=== PATIENT | female | born 1980 | race Caucasian/White ===

== ENCOUNTER 2021-12-23 13:25 | Outpatient (CLI) | payer OTHER ==
[2021-12-23 14:09] VITALS: BP 132/72
--- NOTE | 2021-12-23 14:09 | SLEEP CARE CONSULTATION ---
Information from patient questionnaire entered by Blas Rubin MA. I have reviewed and concur with the information entered by Blas Rubin MA. This document represents the service I personally performed and the decisions made by , Claire Newberry ARNP. History of Present Illness Service Date and Time: 12/23/2021 1325 Reason for Visit: New patient (ONSET 08/2019, NO PRIORS, ) Chief Complaint: reports: Unrefreshed sleep, Snoring, Excessive daytime sleepin ess, Observed pauses in breathing, Fatigue, Other (headaches/migraines) Date of Onset: APROX 3 YEARS Usual bedtime: 1030 - 1100 Time it takes to fall asleep: 15 MINUTES Snores at night: Yes Observed to quit breathing while asleep: Yes Sleeps alone due to snoring: Yes Number of times waking at night: occasionally, some nights won't wake up at all Reasons for waking at night: reports: Choking, Gasping for air, Other (unknown reason) Toss, Turn, or Twitch while sleeping: Yes Recalls having dreams: Yes Usually gets out of bed at: [id number] Feels refreshed in the morning: No Morning headache: Yes (2 times a week; last 24-48 hrs with medication) Sleepy or fatigued during the day: Yes (low energy, fatigued; not sleepy) Ever fallen asleep while driving: No Takes day naps: No Dreams during day naps: No Prior sleep studies: No Additional HPI information: I had the pleasure of seeing GABRIELLA LIGHT today regarding the possibility of her having a sleep disorder. Her current complaints are excessive daytime sleepiness, fatigue, observed pauses in breathing, snoring and unrefreshed sleep. She also complains of waking up with headaches/migraines for 18 years. She was sent to a neurology by her PCP for her migraines. She was encouraged to get a sleep study. She states she snores heavily and has woke up gasping/choking feeling in her throat. She does not usually wake up feeling rested. She states she is fatigued during the day. She states 6 years ago she had lost weight and kept it off for 2 years where she was snoring less and had less migraines. She has put back on about 30 pounds since 2012 and gets migraines whenever she tries to exercise. 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 Patient is Single and lives in . Have you smoked in the past 12 months: No Alcohol use: Yes Alcohol amount and frequency: 2 X WEEKLY Caffeine use: Yes Caffeine amount and frequency: 2 X DAILY Family History Family history of sleep disordered breathing: No Family Hx Sleep Apnea: Mother: Snoring, Father: Snoring, Sibling: Snoring Allergies and Home Medications Drug allergies reviewed: Yes (NKDA) Home medication list reviewed: Yes Allergy and home medication list: Medications: Rizatriptan, prn vitamins Review of Systems Weight gain over past 5 years: 20 Gastrointestinal: reports: heartburn (not often) Neurological: reports: headaches. denies: head trauma Ear/Nose/Throat: reports: nasal congestion (from allergies), sinus problems, dry mouth/throat (sometimes but not consistently for last 6 months), wisdom teeth removed. denies: injury to nose, tonsillectomy Endocrine: reports: sluggishness, excessive thirst Immunologic: reports: itching, allergies to food or environment (possible) Physical Exam Vital signs obtained and entered by: Peggy RUBIN CMA [facility] Blood Pressure: 132/72 Cuff size: wrist Heart Rate: 100 O2 Saturation: 98 (paper mask) Height: 5 ft 4 in Weight: 168 lb Body Mass Index: 28.8 BMI Classification: Overweight Neck circumference: 14 (inches) Mouth and throat: narrow oropharynx Soft palate: long Hard palate: normal Uvula: normal Uvula visualization: 25% Mallampati Class III Tongue: enlarged in size with teeth oshea on lateral edges Tonsils: 1+ Neck: normal w/o lymphadenopathy or thyromegaly Heart: regular rate and rhythm Lungs: clear bilaterally Impression and Plan 1. Suspected Obstructive Sleep Apnea-Hypopnea Syndrome, as suggested by a history of loud and irregular snoring, observed cessation of breath while asleep, gasping or choking in sleep, morning headache, unrefreshed sleep, cognitive impairment, and excessive daytime sleepiness. I recommend proceeding to polysomnography to confirm the diagnosis and to assess severity. If the patient has significant sleep disordered breathing, a manual CPAP titration study will also be performed to find the optimal treatment pressure. I informed the patient of what the sleep studies involve and after some discussion, obtained agreement to proceed. The pathophysiology of obstructive sleep apnea- hypopnea syndrome was discussed with the patient and health risks of cardiovascular and cerebrovascular disease if not treated. Risks of drowsy driving discussed in detail and patient advised to avoid long distance driving and to caul fat puller at the first sign of drowsiness. Patient agreed to plan. * Schedule polysomnography * Avoid long distance driving or driving when feeling sleepy. * Avoid alcohol, sedative and muscle relaxant around bedtime. * Attempt to lose weight. * Review instructions provided by trained office staff on how to prepare for the sleep study. * Return for follow-up after sleep study completed. Counseling Topics: Weight loss health impact Visit Type: In Office Time Spent with Patient (minutes): 31 Provider Statement: I spent 100% of the Face to Face Visit with the patient with greater than 50% spent counseling the patient and coordination of care.
== END 2021-12-23 13:26 | disposition home or self-care (01) ==
LOC: SC 13:25
PROVIDERS: ATTEND Nurse Practitioner Family
DX: G47.10 Hypersomnia, unspecified (principal); R41.89 Other symptoms and signs involving cognitive functions and awareness; G47.8 Other sleep disorders; R51.9 Headache, unspecified; R06.81 Apnea, not elsewhere classified; R06.83 Snoring
CPT/HCPCS: 99203; 99212

== ENCOUNTER 2022-01-28 14:04 | Outpatient (CLI) | payer OTHER | END 2022-01-28 14:05 | disposition home or self-care (01) | LOC: SC 14:04 | PROVIDERS: ATTEND Nurse Practitioner Family | DX: G47.33 Obstructive sleep apnea (adult) (pediatric) (principal); R09.02 Hypoxemia | CPT/HCPCS: 95806 ==

== ENCOUNTER 2022-10-13 08:00 | Outpatient (CLI) | payer BC ==
[2022-10-13 10:26] LABS: BILIRUBIN,URINE NEGATIVE (NEGATIVE); GLUCOSE, URINE (UA) 100 mg/dL (NEGATIVE); KETONES,URINE (UA) NEGATIVE (NEGATIVE); LEUKOCYTE ESTERASE, URINE NEGATIVE (NEGATIVE); NITRITE,URINE NEGATIVE (NEGATIVE); OCCULT BLOOD,URINE NEGATIVE (NEGATIVE); PH,URINE 6.5 PH (5.0-7.5); PROTEIN,URINE NEGATIVE (NEGATIVE); UROBILINOGEN,URINE 0.2 (NORMAL) E.U./dL (NORMAL)
[2022-10-13 10:37] LABS: BACTERIA,URINE Rare /HPF (None Seen); CLARITY,URINE CLEAR (CLEAR); RBC,URINE 0-5 /HPF (0-5); SQUAMOUS EPITHELIAL CELL,UR RARE Squamous (<= Few); WBC,URINE 0-3 /HPF (0-5)
== END 2022-10-13 23:59 | disposition home or self-care (01) ==
LOC: LAB.WC 08:00
PROVIDERS: ATTEND Obstetrics & Gynecology
DX: Z32.01 Encounter for pregnancy test, result positive (principal)
CPT/HCPCS: 81001; 87086; 87181

== ENCOUNTER 2022-10-19 08:16 | Outpatient (CLI) | payer BC ==
--- NOTE | 2022-10-19 13:28 | Ultrasound Report ---
PROCEDURE: OB Detailed Eval INDICATIONS: POSITIVE TEST OUTSIDE/PRIOR DATING DATA: Last menstrual period (LMP): Unknown. LMP-based estimated date of delivery (SAMMIE): Unknown. First dating scan (date and location): 10/19/2022 [facility]. Estimated date of delivery (SAMMIE) from first dating scan: 01/09/2023. The below data below was generated using the ultrasound SAMMIE of 01/09/2023 TECHNIQUE: Real-time scanning was performed of the fetus, with image documentation and biometric measurements. COMPARISON: None. FINDINGS: General: A single living intrauterine gestation is present. Presentation: Transverse Placenta: Placental position is anterior, without previa. Amniotic fluid index: 18 cm, within normal limits. Largest pocket 6 cm heart rate: 148 beats per minute. Maternal cervical canal: Closed cm long; normal length is 2.5 cm or more. Measures 4.8 cm. biometrics: Biparietal diameter: 6.8 cm, 28 weeks 2 days Head circumference: 26.2 cm, 28 weeks 3 days Abdominal circumference: 25.1 cm, 29 weeks 2 days Femur length: 5.4 cm, 28 weeks 4 days Estimated gestational age from initial scan: 28 weeks 2 days. Composite gestational age from present scan: 28 weeks 2 days Estimated weight: 1292 g Measurement variability in biometric dating: +/- 10 days from 12-20 weeks gestation, +/- 2 weeks from 20-30 weeks gestation, +/- 3 weeks at 30 weeks gestation or later. Anatomic survey: Neuro: Ventricles are normal at less than 10 mm. Cisterna magna is normal at 3-11 mm. Cerebellum i s normal in size and morphology. Nuchal skin fold: Normal at less than 6 mm between 14 and 20 weeks gestational age. Face: Nose and lips, facial profile are normal. Spine: No evidence for spina bifida. Heart: 4-chambered heart is present, with normal ventricular outflow tracts. Diaphragm: Diaphragm is intact. Stomach: Left-sided stomach is present. Kidneys: No hydronephrosis. Normal is less than 5 mm in 2nd trimester, less than 7 mm in 3rd trimester. Cord: 3 vessel cord has orthotopic insertion. Bladder: Normal in size. Extremities: All 4 extremities are visualized. Right ovary is not seen. Left ovary is unremarkable. IMPRESSION: 1. [place] living intrauterine at 28 weeks 2 days based on today's ultrasound. 2. Normal placenta and amniotic fluid. 3. Normal and complete anatomic survey. Reviewed by: Medhat Doran MD on 10/19/2022 1:26 PM PDT Approved by: Medhat Doran MD on 10/19/2022 1:26 PM PDT Station ID: [id number]
== END 2022-10-19 08:17 | disposition home or self-care (01) ==
LOC: DI 08:16
PROVIDERS: ATTEND Obstetrics & Gynecology
DX: Z32.01 Encounter for pregnancy test, result positive (principal); Z36.89 Encounter for other specified antenatal screening

== ENCOUNTER 2022-10-20 08:00 | Outpatient (CLI) | payer BC ==
[2022-10-22 09:07] LABS: CHLAMYDIA TRACHOMATIS DNA NEGATIVE (NEGATIVE); NEISSERIA GONORRHOEAE DNA NEGATIVE (NEGATIVE); TRICHOMONAS VAGINALIS DNA NEGATIVE (NEGATIVE)
== END 2022-10-20 23:59 | disposition home or self-care (01) ==
LOC: LAB.WC 08:00
PROVIDERS: ATTEND Obstetrics & Gynecology
DX: Z11.3 Encounter for screening for infections with a predominantly sexual mode of transmission (principal)
CPT/HCPCS: 87491; 87591; 87661

== ENCOUNTER 2022-11-03 16:09 | Outpatient (CLI) | payer BC ==
[2022-11-03 17:47] LABS: HCT - HEMATOCRIT 32.4 % (37.0-47.0); HGB - HEMOGLOBIN 10.9 g/dL (12.0-16.0); MEAN CORPUSCULAR HGB CONC 33.6 g/dL (32.0-36.0); MEAN CORPUSCULAR VOLUME 89.3 fL (81.0-99.0); MEAN PLATELET VOLUME 8.8 fL (7.9-10.8); RED BLOOD COUNT 3.63 10^6/uL (4.20-5.40); RED CELL DISTRIBUTION WIDTH 12.7 % (12.0-15.0); WHITE BLOOD COUNT 6.5 x10^3/uL (4.8-10.8)
== END 2022-11-03 16:10 | disposition home or self-care (01) ==
LOC: LAB 16:09
PROVIDERS: ATTEND Obstetrics & Gynecology
DX: Z34.90 Encounter for supervision of normal pregnancy, unspecified, unspecified trimester (principal); Z36.89 Encounter for other specified antenatal screening; Z36.0 Encounter for antenatal screening for chromosomal anomalies
CPT/HCPCS: 36415; 82950; 85027

== ENCOUNTER 2022-11-18 08:29 | Outpatient (CLI) | payer BC ==
[2022-11-18 08:59] LABS: BASOPHILS % (AUTO) 0.3 %; EOSINOPHILS % (AUTO) 0.5 %; HCT - HEMATOCRIT 31.6 % (37.0-47.0); HGB - HEMOGLOBIN 10.8 g/dL (12.0-16.0); LYMPHOCYTES # (AUTO) 1.2 10^3/uL (1.5-3.5); LYMPHOCYTES % (AUTO) 19.7 %; MEAN CORPUSCULAR HEMOGLOBIN 29.7 pg (27.0-31.0); MEAN CORPUSCULAR HGB CONC 34.2 g/dL (32.0-36.0); MEAN CORPUSCULAR VOLUME 86.8 fL (81.0-99.0); MEAN PLATELET VOLUME 9.5 fL (7.9-10.8); MONOCYTES # (AUTO) 0.4 10^3/uL (0.0-1.0); NEUTROPHILS # (AUTO) 4.3 10^3/uL (1.5-6.6); NEUTROPHILS % (AUTO) 73.3 %; PLT - PLATELET COUNT 270 10^3/uL (130-450); RED BLOOD COUNT 3.64 10^6/uL (4.20-5.40); WHITE BLOOD COUNT 5.9 x10^3/uL (4.8-10.8)
[2022-11-18 09:07] LABS: GTT GLUCOSE,FASTING 98 mg/dL (70-100)
[2022-11-19 03:09] LABS: HBsAG SCREEN Negative (Negative)
[2022-11-19 04:09] LABS: RPR Non Reactive (Non Reactive)
[2022-11-19 07:09] LABS: HCV AB Non Reactive (Non Reactive); HIV SCREEN 4TH GENERATION Non Reactive (Non Reactive)
[2022-11-19 08:09] LABS: VARICELLA-ZOSTER AB IGG 694 index (Immune >165)
== END 2022-11-18 08:30 | disposition home or self-care (01) ==
LOC: LAB 08:29
PROVIDERS: ATTEND Obstetrics & Gynecology
DX: O99.810 Abnormal glucose complicating pregnancy (principal); Z36.89 Encounter for other specified antenatal screening
CPT/HCPCS: 36415; 82951; 82952; 85025; 86592; 86762; 86787; 86803; 86850; 86900; 86901; 87340; 87389

== ENCOUNTER 2022-12-05 10:02 | Outpatient (CLI) | payer BC, OTHER ==
[2022-12-05 10:18] VITALS: BP 108/65
--- NOTE | 2022-12-05 10:42 | PROCEDURE REPORT ---
- HPI Diagnosis/Indication for NST: Gestational Diabetes Current EDU 01/09/23 Gestation 35 Weeks and 0 Days 3 Para 2 Vital Signs Temperature 98.1 F 12/05/22 10:14 Heart Rate 100 12/05/22 10:14 Respiratory Rate 14 12/05/22 10:14 Blood Pressure 108/65 12/05/22 10:14 Temperature 98.1 F 12/05/22 10:14 Heart Rate 100 12/05/22 10:14 Respiratory Rate 14 12/05/22 10:14 Blood Pressure 108/65 12/05/22 10:14 O2 Saturation If not protocol: Oxygen Flow, liters/minute - NST Procedure NST Procedure Start Date 12/05/22 Start Time 10:07 Vibroacoustic Stimulation Used No Patient States Movement Yes 35 weeks 140, moderate variability, +accels, no decels reactive NST - Results and Plan Plan: Reactive NST
== END 2022-12-05 10:50 | disposition home or self-care (01) ==
LOC: WFO 10:02 → FBP 10:04 → WFO 10:50
PROVIDERS: ATTEND Obstetrics & Gynecology Obstetrics
DX: O24.419 Gestational diabetes mellitus in pregnancy, unspecified control (principal); O09.523 Supervision of elderly multigravida, third trimester; Z3A.35 35 weeks gestation of pregnancy
CPT/HCPCS: 59025

== ENCOUNTER 2022-12-08 14:35 | Outpatient (CLI) | payer BC, OTHER ==
[2022-12-08 14:56] VITALS: BP 120/68
--- NOTE | 2022-12-08 22:45 | PROCEDURE REPORT ---
- HPI Diagnosis/Indication for NST: Gestational Diabetes Current [facility] 01/09/23 Gestation 35 Weeks and 3 Days 3 Para 2 Vital Signs Temperature 98.4 F 12/08/22 14:53 Heart Rate 93 12/08/22 14:53 Respiratory Rate 16 12/08/22 14:53 Blood Pressure 120/68 12/08/22 14:53 Temperature 98.4 F 12/08/22 14:53 Heart Rate 93 12/08/22 14:53 Respiratory Rate 16 12/08/22 14:53 Blood Pressure 120/68 12/08/22 14:53 O2 Saturation If not protocol: Oxygen Flow, liters/minute - NST Procedure NST Procedure Start Date 12/08/22 Start Time 14:45 Stop Time 15:08 Vibroacoustic Stimulation Used No Patient States Movement Yes EFM: 150s, moderate variability, positive accelerations, no decelerations [place]: no contractions NST reactive/Cat 1 Performed and read 12/08/22 - Results and Plan Findings/Impression: 42yo at 35.3w presenting for scheduled NST for GDMA2 - NST reactive - Follow up as scheduled 4d
--- NOTE | 2022-12-11 05:24 | Labor Flowsheet ---
Labor Flowsheet Datetime Report Generated by CPN: 12/11/2022 05:24 Datetime: 12/11/2022 05:10 Pulse: 103 SpO2 (%): 100 Datetime: 12/11/2022 04:19 VITAL SIGNS NBP Sys/[place]/Mean (mmHg): 116 : 69 : 81
== END 2022-12-08 15:14 | disposition home or self-care (01) ==
LOC: DI 14:35 → FBP 14:36 → DI 15:14
PROVIDERS: ATTEND Obstetrics & Gynecology
DX: O24.419 Gestational diabetes mellitus in pregnancy, unspecified control (principal); O09.523 Supervision of elderly multigravida, third trimester; Z3A.35 35 weeks gestation of pregnancy
CPT/HCPCS: 59025

== ENCOUNTER 2022-12-09 08:00 | Outpatient (CLI) | payer BC, OTHER | END 2022-12-09 23:59 | disposition home or self-care (01) | LOC: LAB 08:00 | PROVIDERS: ATTEND Obstetrics & Gynecology | DX: Z36.85 Encounter for antenatal screening for Streptococcus B (principal) | CPT/HCPCS: 87797 ==

== ENCOUNTER 2022-12-12 14:25 | Outpatient (CLI) | payer BC, OTHER ==
[2022-12-12 14:54] VITALS: BP 112/51
--- NOTE | 2022-12-13 18:39 | PROCEDURE REPORT ---
- HPI Diagnosis/Indication for NST: Gestational Diabetes Current EDU 01/08/23 Gestation 36 Weeks and 1 Days 3 Para 2 Vital Signs Temperature 98.2 F 12/12/22 14:45 Heart Rate 91 12/12/22 14:45 Respiratory Rate 16 12/12/22 14:45 Blood Pressure 112/51 L 12/12/22 14:45 Temperature 98.2 F 12/12/22 14:45 Heart Rate 92 12/12/22 14:45 Respiratory Rate 18 12/12/22 14:45 Blood Pressure 112/51 L 12/12/22 14:45 O2 Saturation If not protocol: Oxygen Flow, liters/minute - NST Procedure NST Procedure Start Date 12/12/22 Start Time 14:34 Stop Time 15:08 Vibroacoustic Stimulation Used No Patient States Movement Yes EFM: 140s,moderate variability, positive 15x15 accelerations, no decelerations [place]: no contractions NST reactive/Cat 1 Performed and read 12/12/22 - Results and Plan Plan: 42yo at 36w presenting for scheduled NST for GDMA2, controlled with metformin - NST reactive - Follow up as scheduled
== END 2022-12-12 15:10 | disposition home or self-care (01) ==
LOC: WFO 14:25 → FBP 14:27 → WFO 15:10
PROVIDERS: ATTEND Obstetrics & Gynecology
DX: O24.415 Gestational diabetes mellitus in pregnancy, controlled by oral hypoglycemic drugs (principal); Z3A.41 41 weeks gestation of pregnancy
CPT/HCPCS: 59025

== ENCOUNTER 2022-12-15 14:02 | Outpatient (CLI) | payer BC, OTHER ==
[2022-12-15 16:12] LABS: ALBUMIN 3.1 g/dL (3.2-5.5); ALBUMIN/GLOBULIN RATIO 0.8 (1.0-2.2); BILIRUBIN,TOTAL 0.4 mg/dL (0.2-1.0); CREATININE 0.6 mg/dL (0.4-1.0); POTASSIUM 4.1 mmol/L (3.5-5.0); TOTAL PROTEIN 7.1 g/dL (6.7-8.2)
--- NOTE | 2022-12-15 19:19 | Ultrasound Report ---
PROCEDURE: OB F/U or Repeat INDICATIONS: GESTATIONAL DIABETES MELLITUS IN , UNSP C OUTSIDE/PRIOR DATING DATA: Last menstrual period (LMP): Unknown. LMP-based estimated date of delivery (SAMMIE): Unknown. First dating scan (date and location): 10/19/2022. Estimated date of delivery (SAMMIE) from first dating scan: 01/09/2023. The below data below was generated using the working SAMMIE of 01/09/2023 TECHNIQUE: Real-time scanning was performed of the fetus, with image documentation and biometric measurements. Endovaginal scanning: None COMPARISON: None. FINDINGS: General: A single living intrauterine gestation is present. Presentation: Vertex Placenta: Placental position is anterior, without previa. Amniotic fluid index: 15.5 cm, 60.8 percentile for gestational age. heart rate: 137 beats per minute. Maternal cervical canal: 3.4 cm long; normal length is 2.5 cm or more. biometrics: Biparietal diameter: 8.2 cm, 33 week 0 day Head circumference: 32.1 cm, 36 week 1 day Abdominal circumference: 34.9 cm, 38 week 6 day Femur length: 7.1 cm, 36 week 1 day Estimated gestational age from initial scan: 36 week 3 day Composite gestational age from present scan: 36 week 0 day Estimated weight and percentile: 3137 g, 73rd percentile Measurement variability in biometric dating: +/- 10 days from 12-20 weeks gestation, +/- 2 weeks from 20-30 weeks gestation, +/- 3 weeks at 30 weeks gestation or more. Other: Not applicable. IMPRESSION: Single live intrauterine consistent with 36 week 0 day gestation by current ultrasound Reviewed by: Will Izaguirre MD on 12/15/2022 6:18 PM JACKIE Approved by: Will Izaguirre MD on 12/15/2022 6:18 PM JACKIE Station ID: [id number]
== END 2022-12-15 14:03 | disposition home or self-care (01) ==
LOC: DI 14:02
PROVIDERS: ATTEND Obstetrics & Gynecology
DX: O24.419 Gestational diabetes mellitus in pregnancy, unspecified control (principal); O26.893 Other specified pregnancy related conditions, third trimester; L29.9 Pruritus, unspecified; Z3A.36 36 weeks gestation of pregnancy
CPT/HCPCS: 36415; 80053; 82542

== ENCOUNTER 2022-12-15 14:06 | Outpatient (CLI) | payer BC, OTHER ==
[2022-12-15 14:23] VITALS: BP 117/65
--- NOTE | 2022-12-15 17:36 | PROCEDURE REPORT ---
- HPI Diagnosis/Indication for NST: Gestational Diabetes Current EDU 01/09/23 Gestation 36 Weeks and 3 Days 3 Para 2 Vital Signs Temperature 98.4 F 12/15/22 14:19 Heart Rate 102 H 12/15/22 14:19 Respiratory Rate 12/15/22 14:19 Blood Pressure 117/65 12/15/22 14:19 Temperature 98.4 F 12/15/22 14:29 Heart Rate 102 H 12/15/22 14:29 Respiratory Rate 12/15/22 14:29 Blood Pressure 117/65 12/15/22 14:29 O2 Saturation If not protocol: Oxygen Flow, liters/minute - NST Procedure NST Procedure Start Date 12/15/22 Start Time 14:13 Stop Time 14:47 Vibroacoustic Stimulation Used No Patient States Movement Yes - Results and Plan Findings/Impression: Patient is a 42-year-old G3, P2 at 36 weeks 3 days gestation here for scheduled NST. NST Performed 12/15/2022 NST Read 12/15/2022 FHT: 140 bpm baseline, moderate variability, accelerations present, no decelerations. Reactive NST [place]: Irregular, mild Diagnosis 36 weeks gestation Gestational diabetes Elderly multigravida, third trimester Continue with twice weekly NST.
== END 2022-12-15 14:55 | disposition home or self-care (01) ==
LOC: WFO 14:06 → FBP 14:11 → WFO 14:55
PROVIDERS: ATTEND Obstetrics & Gynecology
DX: O24.419 Gestational diabetes mellitus in pregnancy, unspecified control (principal); O09.523 Supervision of elderly multigravida, third trimester; O26.893 Other specified pregnancy related conditions, third trimester; L29.9 Pruritus, unspecified; Z3A.36 36 weeks gestation of pregnancy
CPT/HCPCS: 36415; 59025; 80053; 82542; 99213

== ENCOUNTER 2022-12-19 14:39 | Outpatient (CLI) | payer BC, OTHER ==
[2022-12-19 14:57] VITALS: BP 108/72
--- NOTE | 2022-12-19 15:32 | PROCEDURE REPORT ---
- HPI Diagnosis/Indication for NST: Gestational Diabetes Current EDU 01/09/23 Gestation 37 Weeks and 0 Days 3 Para 2 Vital Signs Temperature 98.1 F 12/19/22 14:53 Heart Rate 97 12/19/22 14:53 Respiratory Rate 16 12/19/22 14:53 Blood Pressure 108/72 12/19/22 14:53 Temperature 98.1 F 12/19/22 14:53 Heart Rate 97 12/19/22 14:53 Respiratory Rate 16 12/19/22 14:53 Blood Pressure 108/72 12/19/22 14:53 O2 Saturation If not protocol: Oxygen Flow, liters/minute - NST Procedure NST Procedure Start Date 12/19/22 Start Time 14:50 Stop Time 15:16 Vibroacoustic Stimulation Used No Patient States Movement Yes - Results and Plan Findings/Impression: Patient is a 42-year-old at 37 weeks 0 days gestation here for scheduled NST. NST Performed 12/19/2022 NST Read 12/19/2022 FHT: 130 bpm baseline, moderate variability, accelerations present, no decelerations. Reactive NST [place]: Quiescent Diagnosis 37 weeks gestation A2 gestational diabetes a Continue with twice weekly NST.
== END 2022-12-19 15:22 | disposition home or self-care (01) ==
LOC: WFO 14:39 → FBP 14:41 → WFO 15:22
PROVIDERS: ATTEND Obstetrics & Gynecology
DX: O24.419 Gestational diabetes mellitus in pregnancy, unspecified control (principal); O09.523 Supervision of elderly multigravida, third trimester; Z3A.37 37 weeks gestation of pregnancy
CPT/HCPCS: 59025

== ENCOUNTER 2022-12-22 14:38 | Outpatient (CLI) | payer BC, OTHER ==
[2022-12-22 14:51] VITALS: BP 110/63
--- NOTE | 2022-12-22 15:20 | PROCEDURE REPORT ---
- HPI Diagnosis/Indication for NST: Gestational Diabetes Vital Signs Temperature 97.9 F 12/22/22 14:48 Heart Rate 93 12/22/22 14:48 Respiratory Rate 16 12/22/22 14:48 Blood Pressure 110/63 12/22/22 14:48 O2 Saturation 100 12/22/22 14:48 Temperature 98.2 F 12/22/22 14:57 Heart Rate 93 12/22/22 14:48 Respiratory Rate 16 12/22/22 14:48 Blood Pressure 110/63 12/22/22 14:48 O2 Saturation 100 12/22/22 14:48 If not protocol: Oxygen Flow, liters/minute - NST Procedure NST Procedure Start Time 14:50 Stop Time 15:16 - Results and Plan Plan: Patient is a 42-year-old -0-0-2 at 37 weeks 3 days gestation here for scheduled NST. NST Performed 12/22/2022 NST Read 12/22/2022 FHT: 130 bpm baseline, moderate variability, accelerations present, no decelerations. Reactive NST [place]: Quiescent Diagnosis 37 weeks gestation A2 GDM, managed with oral hypoglycemics Continue with twice weekly NST.
== END 2022-12-22 15:10 | disposition home or self-care (01) ==
LOC: WFO 14:38 → FBP 14:39 → WFO 15:10
PROVIDERS: ATTEND Obstetrics & Gynecology
DX: O24.415 Gestational diabetes mellitus in pregnancy, controlled by oral hypoglycemic drugs (principal); Z3A.37 37 weeks gestation of pregnancy
CPT/HCPCS: 59025

== ENCOUNTER 2022-12-26 14:33 | Outpatient (CLI) | payer BC, OTHER ==
[2022-12-26 14:54] VITALS: BP 113/62
--- NOTE | 2022-12-26 17:30 | PROCEDURE REPORT ---
- HPI Diagnosis/Indication for NST: Gestational Diabetes Current EDU 01/09/23 Gestation 38 Weeks and 0 Days 3 Para 2 Vital Signs Temperature 98.1 F 12/26/22 14:50 Heart Rate 99 12/26/22 14:50 Respiratory Rate 16 12/26/22 14:50 Blood Pressure 113/62 12/26/22 14:50 O2 Saturation 100 12/26/22 14:50 Temperature 98.1 F 12/26/22 15:35 Heart Rate 99 12/26/22 15:35 Respiratory Rate 16 12/26/22 15:35 Blood Pressure 113/62 12/26/22 15:35 O2 Saturation 100 12/26/22 14:50 If not protocol: Oxygen Flow, liters/minute - NST Procedure NST Procedure Start Date 12/26/22 Start Time 14:44 Stop Time 15:34 Vibroacoustic Stimulation Used No Patient States Movement Yes EFM: 150s, moderate variability, positive 15x15 accelerations [place]: no contractions NST reactive/Cat 1 Performed and read 12/26/22 - Results and Plan Plan: 42yo at 38w presenting for scheduled NST for GDMA2 - NST reactive - Follow up as scheduled 3d
== END 2022-12-26 15:35 | disposition home or self-care (01) ==
LOC: WFO 14:33 → FBP 14:34 → WFO 15:35
PROVIDERS: ATTEND Obstetrics & Gynecology
DX: O24.419 Gestational diabetes mellitus in pregnancy, unspecified control (principal); Z3A.38 38 weeks gestation of pregnancy
CPT/HCPCS: 59025; 99213

== ENCOUNTER 2022-12-29 14:36 | Outpatient (CLI) | payer BC, OTHER ==
[2022-12-29 14:55] VITALS: BP 111/55
--- NOTE | 2022-12-29 19:06 | PROCEDURE REPORT ---
- HPI Diagnosis/Indication for NST: Gestational Diabetes Current EDU 01/09/23 Gestation 38 Weeks and 3 Days 3 Para 2 Vital Signs Temperature 98.2 F 12/29/22 14:47 Temperature 98.4 F 12/29/22 14:52 Heart Rate 93 12/29/22 14:52 Respiratory Rate 16 12/29/22 14:52 Blood Pressure 111/55 L 12/29/22 14:52 O2 Saturation If not protocol: Oxygen Flow, liters/minute - NST Procedure NST Procedure Start Date 12/29/22 Start Time 14:43 Stop Time 15:08 Vibroacoustic Stimulation Used No - Results and Plan Plan: Patient is a 42-year-old at 38 weeks 3 days gestation here for scheduled NST. NST Performed 12/29/2022 NST Read 12/29/2022 FHT: 150 bpm baseline, moderate variability, accelerations present, no decelerations. Reactive NST [place]: Quiescent Diagnosis 38 weeks gestation Gestational diabetes Continue with twice weekly NST.
== END 2022-12-29 15:15 | disposition home or self-care (01) ==
LOC: WFO 14:36 → FBP 14:37 → WFO 15:15
PROVIDERS: ATTEND Obstetrics & Gynecology
DX: O24.419 Gestational diabetes mellitus in pregnancy, unspecified control (principal); Z3A.38 38 weeks gestation of pregnancy
CPT/HCPCS: 59025

== ENCOUNTER 2023-01-02 08:44 | Inpatient (IN) | payer BC, OTHER ==
--- NOTE | 2023-01-02 09:41 | HISTORY & PHYSICAL EXAMINATION ---
Admit History - Visit Reason Visit Reason: Other (induction of labor) - : 3 Parity: 2 Care: positive: [facility] Risk/History: positive: Gestational diabetes, Labor induction Complications This : positive: Gestational diabetes, Other (advanced maternal age) - Mother's Labs Mother's Blood Type: positive: O Mother's RH: positive: Positive GBS: positive: Group B Strep Positive Rubella Status: positive: Non-immune Meds/Allgy - Allergies Allergies/Adverse Reactions: Allergies Allergy/AdvReac Type Severity Reaction Status Date / Time No Known Drug Allergies Allergy Verified 01/02/23 09:12 Review of Systems - Cardiovascular Cariovascular: denies: Chest pain - Respiratory Respiratory: denies: Cough - All Other Systems All Other Systems: reports: Reviewed and negative (occasional contractions, positive movement) Physical - Abdominal Exam Uterine Resting Tone: positive: Soft - Monitoring Heart Rate Baseline: 150 Strip Review: positive: Category I - Presentation Presentation: positive: Vertex - Vaginal Exam Membranes: positive: Membranes intact Dilation (in cm): 1 Effacement (%): 50 Station: positive: -3 Cervical Position: positive: Midposition Plan for Labor - Plan For Labor Plan for Labor: 1. admit for induction of labor risks, benefits and alternatives discussed and all questions answered. Cervical ripening balloon placed and will start pitocin 2. GBS prophylaxis 3. Gestational diabetes sliding scale 4. Advanced maternal age 5. Rubella non-immune discussed MMR Rh+
[2023-01-02] MEDS: SODIUM CHLORIDE FLUSH 0.9% 10 ML SYRINGE IVP SCH ×2 (09:45→19:50)
[2023-01-02] MEDS ORDERED: TRANEXAMIC ACID IN NACL 1,000 MG/100 ML BAG IV PRN (09:48)
[2023-01-02] MEDS ORDERED: NIFEdipine 10 MG CAPSULE PO PRN (09:48)
[2023-01-02] MEDS ORDERED: OXYTOCIN 10 UNIT/ML VIAL IM PRN (09:48)
[2023-01-02] MEDS ORDERED: CARBOPROST TROMETHAMINE 250 MCG/ML AMP IM PRN (09:48)
[2023-01-02] MEDS ORDERED: miSOPROStoL 200 MCG TABLET BC PRN (09:48)
[2023-01-02] MEDS ORDERED: fentaNYL 100 MCG/2 ML VIAL IVP PRN (09:48)
[2023-01-02] MEDS ORDERED: lidocaine 1% 20 ML MDV ID PRN (09:48)
[2023-01-02] MEDS ORDERED: LABETALOL 20 MG/4 ML SYRINGE IVP PRN ×3 (09:48)
[2023-01-02] MEDS ORDERED: miSOPROStoL 200 MCG TABLET PR PRN (09:48)
[2023-01-02] MEDS ORDERED: OXYTOCIN/SODIUM CHLORIDE 500 ML IV PRN (09:48)
[2023-01-02] MEDS ORDERED: METHYLERGONOVINE 0.2 MG/ML VIAL IM PRN (09:48)
[2023-01-02] MEDS ORDERED: SODIUM CHLORIDE FLUSH 0.9% 10 ML SYRINGE IVP PRN (09:48)
[2023-01-02] MEDS ORDERED: hydrALAZINE INJ 20 MG/ML VIAL IVP PRN ×2 (09:48)
[2023-01-02] MEDS ORDERED: OXYTOCIN/SODIUM CHLORIDE 500 ML IV SCH (10:00)
[2023-01-02 10:30] LABS: BASOPHILS % (AUTO) 0.4 %; EOSINOPHILS % (AUTO) 0.4 %; HCT - HEMATOCRIT 32.2 % (37.0-47.0); HGB - HEMOGLOBIN 10.6 g/dL (12.0-16.0); LYMPHOCYTES # (AUTO) 1.2 10^3/uL (1.5-3.5); MEAN CORPUSCULAR HGB CONC 32.9 g/dL (32.0-36.0); MEAN CORPUSCULAR VOLUME 85.2 fL (81.0-99.0); MEAN PLATELET VOLUME 10.4 fL (7.9-10.8); MONOCYTES # (AUTO) 0.4 10^3/uL (0.0-1.0); MONOCYTES % (AUTO) 7.4 %; NEUTROPHILS # (AUTO) 3.6 10^3/uL (1.5-6.6); NEUTROPHILS % (AUTO) 68.4 %; PLT - PLATELET COUNT 289 10^3/uL (130-450); RED BLOOD COUNT 3.78 10^6/uL (4.20-5.40); RED CELL DISTRIBUTION WIDTH 14.3 % (12.0-15.0); WHITE BLOOD COUNT 5.3 x10^3/uL (4.8-10.8)
[2023-01-02] MEDS ORDERED: AMPICILLIN 2 GM in SODIUM CHLORIDE 0.9% MINIBAG 100 ML IV ONE (10:30)
[2023-01-02 10:44] LABS: ALBUMIN 2.9 g/dL (3.2-5.5); ALBUMIN/GLOBULIN RATIO 0.8 (1.0-2.2); BILIRUBIN,TOTAL 0.4 mg/dL (0.2-1.0); CALCIUM 8.5 mg/dL (8.5-10.3); CREATININE 0.5 mg/dL (0.4-1.0); POTASSIUM 3.5 mmol/L (3.5-5.0); TOTAL PROTEIN 6.6 g/dL (6.7-8.2)
[2023-01-02] MEDS: LACTATED RINGERS 1,000 ML IV SCH ×2 (10:52→20:47)
--- NOTE | 2023-01-02 13:26 | PROVIDER PROGRESS NOTE ---
Labor Progress Note - Uterine Monitoring Uterine Monitoring Mode: positive: External toco Contraction Frequency (min/apart): 3 Contraction Intensity: positive: Moderate Uterine Resting Tone: positive: Soft - Monitoring Monitor Mode: positive: External ultrasound Heart Rate Variability: positive: Moderate (6-25 bmp) Accelerations: positive: Present, 15x15 Decelerations: positive: None Strip Review: positive: Category I (Pitocin at 8. Patient feeling contractions, but comfortable. Cervical ripening balloon in place. wellbeing reassuring.)
[2023-01-02] MEDS: INSULIN LISPRO 300 UNIT/3 ML PEN SUBQ SCH ×2 (14:38→19:50)
[2023-01-02] MEDS: AMPICILLIN 1 GM in SODIUM CHLORIDE 0.9% MINIBAG 100 ML IV SCH ×3 (15:04→23:38)
--- NOTE | 2023-01-02 15:32 | PROVIDER PROGRESS NOTE ---
Labor Progress Note - Uterine Monitoring Uterine Monitoring Mode: positive: External toco Contraction Frequency (min/apart): 2-3 minutes Contraction Intensity: positive: Moderate to strong Uterine Resting Tone: positive: Soft - Monitoring Monitor Mode: positive: External ultrasound Heart Rate Variability: positive: Moderate (6-25 bmp) Accelerations: positive: Present, 15x15 Decelerations: positive: None Strip Review: positive: Category I - Vaginal Exam Dilation (in cm): 4 Effacement (%): 60 - Labor Progress Note Labor Progress Note/Additional Text: cervical ripening balloon came out AROM with clear fluid wellbeing is reassuring epidural as needed
--- NOTE | 2023-01-02 17:33 | PROVIDER PROGRESS NOTE ---
Labor Progress Note - Uterine Monitoring Uterine Monitoring Mode: positive: External toco Contraction Intensity: positive: Strong - Monitoring Monitor Mode: positive: External ultrasound Heart Rate Variability: positive: Moderate (6-25 bmp) Accelerations: positive: Present, 15x15 Decelerations: positive: None Strip Review: positive: Category I - Vaginal Exam Dilation (in cm): 8 Effacement (%): 90 Station: -1 Cervical Position: Anterior - Labor Progress Note Labor Progress Note/Additional Text: Patient very uncomfortable, requesting epidural wellbeing reassuring
[2023-01-02] MEDS ORDERED: ROPIVACAINE 0.2% 200 MG/100 ML BAG EP ONE (17:37)
[2023-01-02] MEDS ORDERED: fentaNYL 100 MCG/2 ML VIAL ONE (17:37)
[2023-01-02] MEDS ORDERED: NALOXONE 0.4 MG/ML VIAL IVP PRN (18:04)
[2023-01-02] MEDS ORDERED: ePHEDrine 50 MG/ML VIAL IVP PRN (18:04)
[2023-01-02] MEDS ORDERED: ROPIVACAINE 0.2% 200 MG/100 ML BAG EP PRN (18:04)
--- NOTE | 2023-01-02 18:04 | ANESTHESIA ---
Pre-Anesthesia VS, & Labs - Diagnosis active labor - Procedure vaginal delivery Vital Signs: Temp Pulse Resp BP Pulse Ox O2 Flow Rate 36.9 C 90 16 123/72 01/02/23 09:12 01/02/23 09:12 01/02/23 09:12 01/02/23 09:12 Height: 5 ft 4 in Weight (kg): 79.379 kg Body Mass Index: 30.0 BMI Classification: Obese - NPO Last Fluid Intake: clear liquids - Is Patient ?: Yes - Lab Results Current Lab Results: Laboratory Tests 01/02/23 12:05: POC Whole Bld Glucose 93 01/02/23 08:40: Sodium 132 L, Potassium 3.5, Chloride 109, Carbon Dioxide 19 L, Anion Gap 4.0 L, BUN 9, Creatinine 0.5, Estimated GFR (MDRD) 136, Glucose 129 H, Calcium 8.5, Total Bilirubin 0.4, AST 17, ALT 16, Alkaline Phosphatase 140 H, Total Protein 6.6 L, Albumin 2.9 L, Globulin 3.7, Albumin/Globulin Ratio 0.8 L 01/02/23 08:40: WBC 5.3, RBC 3.78 L, Hgb 10.6 L, Hct 32.2 L, MCV 85.2, MCH 28.0, MCHC 32.9, RDW 14.3, Plt Count 289, MPV 10.4, Neut # (Auto) 3.6, Lymph # (Auto) 1.2 L, [place] # (Auto) 0.4, Eos # (Auto) 0.0, Baso # (Auto) 0.0, Absolute Nucleated RBC 0.00, Nucleated RBC % 0.0 01/02/23 08:40: Blood Type O POSITIVE, Antibody Screen NEGATIVE Lab results reviewed: Yes Fish Bones: 01/02/23 08:40 01/02/23 08:40 Home Medications and Allergies Active Medications Carboprost Tromethamine (Carboprost Tromethamine 250 Mcg/Ml Amp) 250 mcg IM .ONCE PRN PRN Reason: Hemorrhage Fentanyl (Fentanyl 100 Mcg/2 Ml Vial) 50 mcg IVP Q1H PRN PRN Reason: Severe Pain (score 7-10) Hydralazine HCl (Hydralazine Inj 20 Mg/Ml Vial) 5 - 10 mg IVP Q20M PRN; Protocol PRN Reason: SBP> or= 160 OR DBP> or= 110 Hydralazine HCl (Hydralazine Inj 20 Mg/Ml Vial) 10 mg IVP .ONCE PRN; Protocol PRN Reason: SBP> or= 160 OR DBP> or= 110 Oxytocin/Sodium Chloride (Pitocin/Sodium Chloride) 500 mls @ 999 mls/hr IV PRN PRN; Protocol PRN Reason: POST- HEMORR PREVENTION Tranexamic Acid (Tranexamic 1,000 Mg/100ml-Nacl) 1,000 mg in 100 mls @ 600 mls/hr IV Q30M PRN PRN Reason: EBL >1200mL and within 3hr Lactated Ringer's (Lr) 1,000 mls @ 75 mls/hr IV .[id number] GAURI Last Admin: 01/02/23 10:52 Dose: 75 mls/hr Oxytocin/Sodium Chloride (Pitocin/Sodium Chloride) 500 mls @ 2 mls/hr IV TITR GAURI; Protocol Last Titration: 01/02/23 15:39 Dose: 12 milliunit/min, 12 mls/hr Ampicillin Sodium 1 gm/ Sodium (Chloride) 100 mls @ 200 mls/hr IV Q4H GAURI Last Infusion: 01/02/23 15:34 Dose: Infused Insulin Human Lispro (Insulin Lispro 300 Unit/3 Ml Pen) 1 - 5 unit SUBQ 0800,1200,1700,2100 GAURI; Protocol Last Admin: 01/02/23 14:38 Dose: Not Given Labetalol HCl (Labetalol 20 Mg/4 Ml Syringe) 20 - 80 mg IVP Q10M PRN; Protocol PRN Reason: SBP> or= 160 OR DBP> or= 110 Labetalol HCl (Labetalol 20 Mg/4 Ml Syringe) 20 mg IVP .ONCE PRN; Protocol PRN Reason: SBP> or= 160 OR DBP> or= 110 Labetalol HCl (Labetalol 20 Mg/4 Ml Syringe) 20 - 40 mg IVP Q10M PRN; Protocol PRN Reason: SBP> or= 160 OR DBP> or= 110 Lidocaine HCl (Lidocaine 1% 20 Ml Mdv) 20 ml ID .ONCE PRN PRN Reason: PERINEAL REPAIR Stop: 01/05/23 09:48 Methylergonovine Maleate (Methylergonovine 0.2 Mg/Ml Vial) 0.2 mg IM .ONCE PRN PRN Reason: Hemorrhage Misoprostol (Misoprostol 200 Mcg Tablet) 600 mcg BC .ONCE PRN PRN Reason: Hemorrhage Misoprostol (Misoprostol 200 Mcg Tablet) 800 mcg IN .ONCE PRN PRN Reason: Hemorrhage Nifedipine (Nifedipine 10 Mg Capsule) 10 - 20 mg PO Q20M PRN; Protocol PRN Reason: SBP> or= 160 OR DBP> or= 110 Oxytocin (Oxytocin 10 Unit/Ml Vial) 10 unit IM .ONCE PRN PRN Reason: Step One if no IV access. Sodium Chloride (Sodium Chloride Flush 0.9% 10 Ml Syringe) 10 ml IVP PRN PRN PRN Reason: NEEDED PER PROVIDER ORDERS Sodium Chloride (Sodium Chloride Flush 0.9% 10 Ml Syringe) 10 ml IVP Q8H GAURI Last Admin: 01/02/23 09:45 Dose: 10 ml metformin, maxalt Allergies/Adverse Reactions: Allergies Allergy/AdvReac Type Severity Reaction Status Date / Time No Known Drug Allergies Allergy Verified 01/02/23 09:12 Anes History & Medical History - Anesthetic History Family history of Anesthesia Complications: Denies Family history of Malignant Hyperthermia: Denies - Medical History Cardiovascular: reports: None Pulmonary: reports: None Gastrointestinal: reports: None Urinary: reports: None Neuro: reports: None Musculoskeletal: reports: None Endocrine/Autoimmune: reports: Other (gestational diabetes) Blood Disorders: reports: None Skin: reports: None Smoking Status: Never smoker Psychosocial: reports: No issues indicated History of Cancer?: No - Obstetrical History : 3 Parity: 2 Events: reports: Gestational diabetes, Labor induction Complications: reports: Gestational diabetes, Other (advanced maternal age) Exam General: Alert, Oriented x3, Cooperative, No acute distress Dental: WNL Mouth Openin Fingerbreadth Neck Mobility: Normal Mallampati classification: II Thyromental Distance: 4-6 cm Mental/Cognitive Status: Alert/Oriented X3, Normal for patient Plan Anesthesia Type: Epidural (CSE with 20 mcg fentanyl) Consent for Procedure(s) Verified and Reviewed: Yes Code Status: Attempt Resuscitation ASA classification: 2-Mild systemic disease Is this case an emergency?: No
[2023-01-02] MEDS ORDERED: METHYLERGONOVINE 0.2 MG/ML VIAL ONE (20:16)
--- NOTE | 2023-01-02 20:27 | DELIVERY NOTE ---
Delivery Note - Labor Labor: positive: Induced by ARM, Induced by oxytocin - Infant Delivery Method Delivery Method: positive: Spontaneous vaginal delivery - Cervical Ripening Method Cervical Ripening Method: positive: Balloon device - Presentation Presentation: positive: Vertex - Nuchal Cord Nuchal Cord: positive: None - Anesthetic Anesthetic Type: - Amniotic Fluid Description Amniotic Fluid Description: positive: Clear - Laceration Laceration: positive: Labial (right labial) - Suture Suture Type: positive: Vicryl Suture Size: positive: 3-0 - Delivery Outcome Delivery Outcome: positive: Livebirth - : positive: Placed in direct skin contact with mother, Warmed, [place] used [place] sex: positive: Female - Cord Cord: positive: 3 vessels - Placenta Placenta: positive: Spontaneous, Curettage, Other (placenta delivered spontaneously. Retained fragments of placenta on fundal and anterior aspects of uterus which were manually removed and with gentle curettage.) - Estimated Blood Loss Estimated Blood Loss (in cc): 1,700 - Delivery Comments (Free Text/Narrative) Delivery Comments (Free Text/Narrative): Stage I: Patient is a presenting for induction of labor for advanced maternal age and gestational diabetes. Cervical ripening balloon placed and pitocin started. AROM with clear fluid after CRB fell out. FHTs remained reassuring throughout the first stage. Patient received an epidural for anesthesia. Stage II: Female was atraumatcally delivered from RUFUS position. There was no nuchal cord. The anterior shoulder was delivered without difficulty followed by the posterior shoulder and body. was vigorous at delivery. Infant was bulb suctioned and cord was doubly clamped and cut. Infant was placed on mom. Weight and APGARS pending Stage III: Gentle cord traction and crede maneuver were used. Placenta delivered spontaneously. Placenta was noted to not be intact. Pieces of placenta were adherent to the fundal and anterior aspects of the uterus. Gentle curettage was performed to remove additional placenta 3 vessel cord. Course: Uterine tone was firm with massage after delivery of the placenta. Oxytocin was administered IV and IM methergine. There was a right labial laceration which was repaired in the usual fashion with 3-0 vicryl suture. Hemostasis was excellent. EBL 1700 mL.
--- NOTE | 2023-01-02 20:39 | PROCEDURE REPORT ---
Hospitalist Procedure Note - Procedure Note Procedure Note: Delivery Note - Labor Labor: positive: Induced by ARM, Induced by oxytocin - Delivery Method Infant Delivery Method: positive: Spontaneous vaginal delivery - Cervical Ripening Method Cervical Ripening Method: positive: Balloon device - Presentation Presentation: positive: Vertex - Nuchal Cord Nuchal Cord: positive: None - Anesthetic Anesthetic Type: - Amniotic Fluid Description Amniotic Fluid Description: positive: Clear - Laceration Laceration: positive: Labial (right labial) - Suture Suture Type: positive: Vicryl Suture Size: positive: 3-0 - Delivery Outcome Delivery Outcome: positive: Livebirth - [place] : positive: Placed in direct skin contact with mother, Warmed, [place] used [place] sex: positive: Female - Cord Cord: positive: 3 vessels - Placenta Placenta: positive: Spontaneous, Curettage, Other (placenta delivered spontaneously. Retained fragments of placenta on fundal and anterior aspects of uterus which were manually removed and with gentle curettage.) - Estimated Blood Loss Estimated Blood Loss (in cc): 1,700 - Delivery Comments (Free Text/Narrative) Delivery Comments (Free Text/Narrative): Stage I: Patient is a presenting for induction of labor for advanced maternal age and gestational diabetes. Cervical ripening balloon placed and pitocin started. AROM with clear fluid after CRB fell out. FHTs remained reassuring throughout the first stage. Patient received an epidural for anesthesia. Stage II: Female was atraumatcally delivered from RUFUS position. There was no nuchal cord. The anterior shoulder was delivered without difficulty followed by the posterior shoulder and body. Infant was vigorous at delivery. Infant was bulb suctioned and cord was doubly clamped and cut. was placed on mom. Weight and APGARS pending Stage III: Gentle cord traction and crede maneuver were used. Placenta delivered spontaneously. Placenta was noted to not be intact. Pieces of placenta were adherent to the fundal and anterior aspects of the uterus. Gentle curettage was performed to remove additional placenta 3 vessel cord. Course: Uterine tone was firm with massage after delivery of the placenta. Oxytocin was administered IV and IM methergine. There was a right labial laceration which was repaired in the usual fashion with 3-0 vicryl suture. Hemostasis was excellent. EBL 1700 mL
[2023-01-02 20:56] LABS: BASOPHILS % (AUTO) 0.3 %; HGB - HEMOGLOBIN 10.2 g/dL (12.0-16.0); LYMPHOCYTES % (AUTO) 8.8 %; MEAN CORPUSCULAR HEMOGLOBIN 28.3 pg (27.0-31.0); MEAN CORPUSCULAR HGB CONC 32.9 g/dL (32.0-36.0); MEAN CORPUSCULAR VOLUME 85.9 fL (81.0-99.0); MEAN PLATELET VOLUME 9.5 fL (7.9-10.8); MONOCYTES # (AUTO) 0.6 10^3/uL (0.0-1.0); MONOCYTES % (AUTO) 5.4 %; NEUTROPHILS # (AUTO) 9.4 10^3/uL (1.5-6.6); NEUTROPHILS % (AUTO) 85.2 %; PLT - PLATELET COUNT 258 10^3/uL (130-450); RED BLOOD COUNT 3.61 10^6/uL (4.20-5.40); RED CELL DISTRIBUTION WIDTH 14.2 % (12.0-15.0)
[2023-01-02] MEDS ORDERED: CEFOTETAN DISODIUM 1 GM in SODIUM CHLORIDE 0.9% MINIBAG 100 ML IV SCH (21:00)
[2023-01-02 21:20] LABS: INR 0.9 (0.8-1.2); PT - PROTHROMBIN TIME 10.4 secs (9.9-12.6)
[2023-01-02 21:27] LABS: PARTIAL THROMBOPLASTIN TIME 23.4 secs (24.9-33.3)
[2023-01-02] MEDS ORDERED: diphenhydrAMINE 25 MG CAPSULE PO PRN (21:47)
[2023-01-02] MEDS ORDERED: LACTATED RINGERS 1,000 ML IV SCH (23:00)
[2023-01-03] MEDS: IBUPROFEN 600 MG TABLET PO SCH ×4 (02:00→21:31)
[2023-01-03] MEDS: ACETAMINOPHEN 500 MG TABLET PO SCH ×3 (02:00→17:16)
[2023-01-03] MEDS: DOCUSATE SODIUM 100 MG CAPSULE PO SCH ×3 (02:04→23:09)
[2023-01-03 06:12] LABS: BASOPHILS % (AUTO) 0.2 %; EOSINOPHILS % (AUTO) 0.2 %; HCT - HEMATOCRIT 24.4 % (37.0-47.0); LYMPHOCYTES # (AUTO) 1.3 10^3/uL (1.5-3.5); LYMPHOCYTES % (AUTO) 12.5 %; MEAN CORPUSCULAR HEMOGLOBIN 28.1 pg (27.0-31.0); MEAN CORPUSCULAR HGB CONC 32.8 g/dL (32.0-36.0); MEAN CORPUSCULAR VOLUME 85.6 fL (81.0-99.0); MEAN PLATELET VOLUME 9.5 fL (7.9-10.8); MONOCYTES # (AUTO) 0.7 10^3/uL (0.0-1.0); MONOCYTES % (AUTO) 6.2 %; NEUTROPHILS # (AUTO) 8.5 10^3/uL (1.5-6.6); NEUTROPHILS % (AUTO) 80.5 %; PLT - PLATELET COUNT 204 10^3/uL (130-450); RED BLOOD COUNT 2.85 10^6/uL (4.20-5.40); RED CELL DISTRIBUTION WIDTH 14.1 % (12.0-15.0); WHITE BLOOD COUNT 10.5 x10^3/uL (4.8-10.8)
[2023-01-03 06:25] LABS: ALBUMIN 2.2 g/dL (3.2-5.5); ALBUMIN/GLOBULIN RATIO 0.8 (1.0-2.2); BILIRUBIN,TOTAL 0.3 mg/dL (0.2-1.0); CALCIUM 8.4 mg/dL (8.5-10.3); CREATININE 0.5 mg/dL (0.4-1.0); POTASSIUM 3.9 mmol/L (3.5-5.0); TOTAL PROTEIN 5.1 g/dL (6.7-8.2)
--- NOTE | 2023-01-03 08:22 | PROVIDER PROGRESS NOTE ---
Subjective - Prog Note Date Prog Note Date: 01/03/23 Prog Note Time: 08:20 - Subjective Subjective: Patient is PPD#1 s/p complicated by retained placenta and hemorrhage. Patient is doing well this morning. Lochia is appropriate. Howard catheter is in place. Tolerating regular diet. Objective - Vital Signs/Intake & Output Vital Signs: Vital Signs x48h Temp Pulse Resp BP Pulse Ox O2 Flow Rate 01/03/23 01:47 99.8 F 104 H 14 118/69 99 0 01/03/23 00:52 102 H 12 124/62 98 0 Intake & Output: Intake & Output 12/31/22 01/01/23 01/02/23 01/03/23 23:59 23:59 23:59 23:59 Intake Total 2219.083 1393 Output Total 2076 975 Balance 143.083 418 - Objective General Appearance: positive: No acute distress Respiratory: positive: Breath sounds nml Cardiovascular: positive: Regular rate & rhythm Abdomen: positive: Non-tender (firm fundus below umbilicus) Extremities: positive: No pedal edema Neurologic/Psychiatric: positive: Oriented x3 - Lab Results Fish Bones: 01/03/23 06:08 01/03/23 06:08 Other Labs: Lab Results x24hrs 01/03/23 01/03/23 01/02/23 Range/Units 06:08 06:08 21:07 WBC 10.5 (4.8-10.8) x10^3/uL RBC 2.85 L (4.20-5.40) 10^6/uL Hgb 8.0 L (12.0-16.0) g/dL Hct 24.4 L (37.0-47.0) % MCV 85.6 (81.0-99.0) fL MCH 28.1 (27.0-31.0) pg MCHC 32.8 (32.0-36.0) g/dL RDW 14.1 (12.0-15.0) % Plt Count 204 (130-450) 10^3/uL MPV 9.5 (7.9-10.8) fL Neut # (Auto) 8.5 H (1.5-6.6) 10^3/uL Lymph # (Auto) 1.3 L (1.5-3.5) 10^3/uL [place] # (Auto) 0.7 (0.0-1.0) 10^3/uL Eos # (Auto) 0.0 (0.0-0.7) 10^3/uL Baso # (Auto) 0.0 (0.0-0.1) 10^3/uL Absolute Nucleated RBC 0.00 x10^3/uL Nucleated RBC % 0.0 /100WBC PT 10.4 (9.9-12.6) secs INR 0.9 (0.8-1.2) APTT 23.4 L (24.9-33.3) secs Sodium 136 (135-145) mmol/L Potassium 3.9 (3.5-5.0) mmol/L Chloride 111 (101-111) mmol/L Carbon Dioxide 20 L (21-32) mmol/L Anion Gap 5.0 L (6-13) BUN 6 (6-20) mg/dL Creatinine 0.5 (0.4-1.0) mg/dL Estimated GFR (MDRD) 136 (>89) Glucose 125 H (70-100) mg/dL POC Whole Bld Glucose (70 - 100) mg/dL Calcium 8.4 L (8.5-10.3) mg/dL Total Bilirubin 0.3 (0.2-1.0) mg/dL AST 22 (10-42) IU/L ALT 12 (10-60) IU/L Alkaline Phosphatase 103 (42-121) IU/L Total Protein 5.1 L (6.7-8.2) g/dL Albumin 2.2 L (3.2-5.5) g/dL Globulin 2.9 (2.1-4.2) g/dL Albumin/Globulin Ratio 0.8 L (1.0-2.2) Blood Type Antibody Screen Crossmatch IS Only 01/02/23 01/02/23 01/02/23 Range/Units 20:51 12:05 08:40 WBC 11.0 H (4.8-10.8) x10^3/uL RBC 3.61 L (4.20-5.40) 10^6/uL Hgb 10.2 L (12.0-16.0) g/dL Hct 31.0 L (37.0-47.0) % MCV 85.9 (81.0-99.0) fL MCH 28.3 (27.0-31.0) pg MCHC 32.9 (32.0-36.0) g/dL RDW 14.2 (12.0-15.0) % Plt Count 258 (130-450) 10^3/uL MPV 9.5 (7.9-10.8) fL Neut # (Auto) 9.4 H (1.5-6.6) 10^3/uL Lymph # (Auto) 1.0 L (1.5-3.5) 10^3/uL [place] # (Auto) 0.6 (0.0-1.0) 10^3/uL Eos # (Auto) 0.0 (0.0-0.7) 10^3/uL Baso # (Auto) 0.0 (0.0-0.1) 10^3/uL Absolute Nucleated RBC 0.00 x10^3/uL Nucleated RBC % 0.0 /100WBC PT (9.9-12.6) secs INR (0.8-1.2) APTT (24.9-33.3) secs Sodium 132 L (135-145) mmol/L Potassium 3.5 (3.5-5.0) mmol/L Chloride 109 (101-111) mmol/L Carbon Dioxide 19 L (21-32) mmol/L Anion Gap 4.0 L (6-13) BUN 9 (6-20) mg/dL Creatinine 0.5 (0.4-1.0) mg/dL Estimated GFR (MDRD) 136 (>89) Glucose 129 H (70-100) mg/dL POC Whole Bld Glucose 93 (70 - 100) mg/dL Calcium 8.5 (8.5-10.3) mg/dL Total Bilirubin 0.4 (0.2-1.0) mg/dL AST 17 (10-42) IU/L ALT 16 (10-60) IU/L Alkaline Phosphatase 140 H (42-121) IU/L Total Protein 6.6 L (6.7-8.2) g/dL Albumin 2.9 L (3.2-5.5) g/dL Globulin 3.7 (2.1-4.2) g/dL Albumin/Globulin Ratio 0.8 L (1.0-2.2) Blood Type Antibody Screen Crossmatch IS Only 01/02/23 01/02/23 Range/Units 08:40 08:40 WBC 5.3 (4.8-10.8) x10^3/uL RBC 3.78 L (4.20-5.40) 10^6/uL Hgb 10.6 L (12.0-16.0) g/dL Hct 32.2 L (37.0-47.0) % MCV 85.2 (81.0-99.0) fL MCH 28.0 (27.0-31.0) pg MCHC 32.9 (32.0-36.0) g/dL RDW 14.3 (12.0-15.0) % Plt Count 289 (130-450) 10^3/uL MPV 10.4 (7.9-10.8) fL Neut # (Auto) 3.6 (1.5-6.6) 10^3/uL Lymph # (Auto) 1.2 L (1.5-3.5) 10^3/uL [place] # (Auto) 0.4 (0.0-1.0) 10^3/uL Eos # (Auto) 0.0 (0.0-0.7) 10^3/uL Baso # (Auto) 0.0 (0.0-0.1) 10^3/uL Absolute Nucleated RBC 0.00 x10^3/uL Nucleated RBC % 0.0 /100WBC PT (9.9-12.6) secs INR (0.8-1.2) APTT (24.9-33.3) secs Sodium (135-145) mmol/L Potassium (3.5-5.0) mmol/L Chloride (101-111) mmol/L Carbon Dioxide (21-32) mmol/L Anion Gap (6-13) BUN (6-20) mg/dL Creatinine (0.4-1.0) mg/dL Estimated GFR (MDRD) (>89) Glucose (70-100) mg/dL POC Whole Bld Glucose (70 - 100) mg/dL Calcium (8.5-10.3) mg/dL Total Bilirubin (0.2-1.0) mg/dL AST (10-42) IU/L ALT (10-60) IU/L Alkaline Phosphatase (42-121) IU/L Total Protein (6.7-8.2) g/dL Albumin (3.2-5.5) g/dL Globulin (2.1-4.2) g/dL Albumin/Globulin Ratio (1.0-2.2) Blood Type O POSITIVE Antibody Screen NEGATIVE Crossmatch IS Only See Detail Assessment/Plan - Problem List (1) hemorrhage Impression: hemoglobin 8 this morning, asymptomatic. Lochia is appropriate. Explained PPH and retained placenta to patient yesterday and again this morning. All questions opened. (2) Vaginal delivery Impression: Rubella non-immune MMR prior to discharge (3) Gestational diabetes Impression: follow up
[2023-01-03] MEDS ORDERED: MEASLES,MUMPS & RUBELLA VACC 0.5 ML VIAL SUBQ ONE (08:24)
[2023-01-04] MEDS: ACETAMINOPHEN 500 MG TABLET PO SCH ×2 (01:43→09:46)
[2023-01-04] MEDS: IBUPROFEN 600 MG TABLET PO SCH ×2 (03:35→09:45)
--- NOTE | 2023-01-04 09:32 | PROVIDER PROGRESS NOTE ---
Subjective - Prog Note Date Prog Note Date: 01/04/23 Prog Note Time: 09:30 - Subjective Subjective: Pt is PPD#2 s/p complicated by retained placenta, PPH Patient is doing well this morning. Ambulating, tolerating regular diet, spontaneously voiding. Lochia < menses Objective - Vital Signs/Intake & Output Reviewed Vital Signs: Yes Vital Signs: Vital Signs x48h Temp Pulse Resp BP 01/04/23 02:00 98.4 F 72 18 119/68 Intake & Output: Intake & Output 01/01/23 01/02/23 01/03/23 01/04/23 23:59 23:59 23:59 23:59 Intake Total 2643.750 2810 Output Total 5229 3655 Balance 567.750 -265 - Objective General Appearance: positive: No acute distress Respiratory: positive: Breath sounds nml Cardiovascular: positive: Regular rate & rhythm Abdomen: positive: Other (firm fundus below umbilicus) Extremities: positive: Non-tender, No pedal edema Neurologic/Psychiatric: positive: Oriented x3 - Lab Results Fish Bones: 01/03/23 06:08 01/03/23 06:08 Assessment/Plan - Problem List (2) Vaginal delivery Impression: PPH- iron for acute blood loss anemia uncomplicated course, discharge to home today (3) Gestational diabetes Impression: follow up
--- NOTE | 2023-01-04 09:35 | Discharge Plan ---
Discharge Plan Problem Reviewed?: Yes Disposition: Home, Self Care Diet: Regular No Smoking: If you smoke, Please STOP! Call for help.
--- NOTE | 2023-01-04 09:40 | Discharge Plan ---
Discharge Plan Problem Reviewed?: Yes Disposition: Home, Self Care Condition: Good Prescriptions: Docusate Sodium 100Mg Capsule [Colace 100Mg Capsule] 100 mg PO BID PRN #30 cap PRN Reason: Constipation Ferrous Sulfate [Feosol] 325 mg PO BIDWM #60 tab Activity Restrictions: Nothing in the vagina Shower Restrictions: No Driving Restrictions: No No Smoking: If you smoke, Please STOP! Call for help.
--- NOTE | 2023-01-04 09:42 | DISCHARGE SUMMARY ---
Discharge Summary Discharge Date: 01/04/23 Discharging Provider: Robby Condition at Discharge: Good Discharge Disposition: 01 Home, Self Care - DIAGNOSES Admission Diagnoses: advanced maternal age and gestational diabetes - HOSPITAL COURSE Hospital Course: - Delivery Comments (Free Text/Narrative) Delivery Comments (Free Text/Narrative): Stage I: Patient is a presenting for induction of labor for advanced maternal age and gestational diabetes. Cervical ripening balloon placed and pitocin started. AROM with clear fluid after CRB fell out. FHTs remained reassuring throughout the first stage. Patient received an epidural for anesthesia. Stage II: Female was atraumatcally delivered from RUFUS position. There was no nuchal cord. The anterior shoulder was delivered without difficulty followed by the posterior shoulder and body. was vigorous at delivery. Infant was bulb suctioned and cord was doubly clamped and cut. Infant was placed on mom. Weight and APGARS pending Stage III: Gentle cord traction and crede maneuver were used. Placenta delivered spontaneously. Placenta was noted to not be intact. Pieces of placenta were adherent to the fundal and anterior aspects of the uterus. Gentle curettage was performed to remove additional placenta 3 vessel cord. Course: Uterine tone was firm with massage after delivery of the placenta. Oxytocin was administered IV and IM methergine. There was a right labial laceration which was repaired in the usual fashion with 3-0 vicryl suture. Hemostasis was excellent. EBL 1700 mL. - ALLERGIES Allergies/Adverse Reactions: Allergies Allergy/AdvReac Type Severity Reaction Status Date / Time No Known Drug Allergies Allergy Verified 01/02/23 09:12 - MEDICATIONS Home Medications: Ambulatory Orders Medication Instructions Recorded Confirmed Docusate Sodium 100Mg Capsule 100 mg PO BID PRN #30 cap 01/04/23 [Colace 100Mg Capsule] Ferrous Sulfate [Feosol] 325 mg PO BIDWM #60 tab 01/04/23 - PHYSICAL EXAM AT DISCHARGE General Appearance: positive: No acute distress Respiratory: positive: Breath sounds nml Cardiovascular: positive: Regular rate & rhythm Abdomen: positive: Non-tender (FFBU) Extremities: positive: No pedal edema Neurologic/Psychiatric: positive: Oriented x3 - LABS Result Diagrams: 01/03/23 06:08 01/03/23 06:08
[2023-01-04] MEDS: DOCUSATE SODIUM 100 MG CAPSULE PO SCH (09:46)
[2023-01-04] MEDS ORDERED: MEASLES,MUMPS & RUBELLA VACC 0.5 ML VIAL SUBQ ONE (10:00)
[2023-01-04 13:52] VITALS: BP 115/67
--- NOTE | 2023-01-04 14:10 | Labor Flowsheet ---
Labor Flowsheet Datetime Report Generated by CPN: 01/04/2023 14:09 Datetime: 01/04/2023 10:08 VITAL SIGNS NBP Sys/[place]/Mean (mmHg): 115 : 67 : 76 Pulse: 85 Datetime: 01/02/2023 21:45 Respirations: 16 Temperature (C): 37.0 Temperature Route: Oral PAIN Pain Scale: 0 Datetime: 01/02/2023 20:07 Medication Comments: pit wide open Datetime: 01/02/2023 20:03 Stage of : Recovery Datetime: 01/02/2023 19:54 Communication Comments: Dr Baltes requested a specific currette. Laura Schuyler-Rotundo, pc technician get ting it. Datetime: 01/02/2023 19:53 Patient Care Comments: placenta out Datetime: 01/02/2023 19:52 LaborFlag: Labor Datetime: 01/02/2023 19:28 I/O Interventions: Howard Discontinued Datetime: 01/02/2023 19:21 VAGINAL EXAM Dilatation (cm): 10.0 Station: 1 Exam by: Dr Bustamante Vaginal Bleeding: Normal Show Datetime: 01/02/2023 19:10 COMMUNICATION Communication: Report Given to @ Deloris B. RN Datetime: 01/02/2023 19:08 Antibiotics: Ampicillin IV 1 Gm Datetime: 01/02/2023 19:00 UTERINE ACTIVITY Monitor Mode: External Frequency (min): 2-3 Duration (sec): 70-90 Pattern: Normal: <= 5 Contractions in 10 Minutes ASSESSMENT A Monitor Mode: Telemetry FHR Baseline Rate : 145 Variability: Moderate 6-25 bpm Accelerations: None Decelerations: None Category: Category I Datetime: 01/02/2023 18:51 MEDICATIONS Pitocin (milliunits): Increased to @ 16 Datetime: 01/02/2023 18:46 Patient Position/Activity: High Fowlers Datetime: 01/02/2023 18:45 Quality: Strong Resting Tone (Palpate): Relaxed Pitocin Checklist: At Least 1 Acceleration of 15 bpm x 15 Seconds in 30 Minutes or Adequate Variabi lity; No More than 1 Late Deceleration Occurred in Past 30 Minutes; No More than 2 Variable Decelerat ions > 60 Seconds in Duration and decreasing >60 bpm in 30 minutes; No More than 5 Uterine Contractio ns in 10 Minutes for any 20 Minute Interval; Uterus Palpates Soft between Contractions Datetime: 01/02/2023 18:00 SpO2 (%): 100 Datetime: 01/02/2023 17:56 Epidural Procedure Other: Pump Started Datetime: 01/02/2023 17:53 Pain Coping: Talking Through Contractions Datetime: 01/02/2023 17:48 Epidural Procedure: Loading Dose Datetime: 01/02/2023 17:40 Anesthesia Comments: A. Robel administered 20mcg fentanyl intrathecal Datetime: 01/02/2023 17:39 Monitor Interventions for FHR: Ultrasound Adjusted Datetime: 01/02/2023 17:37 PROCEDURE TIME OUT Procedure Verify: Correct Patient Identity; Correct Side and Site are Marked; Accurate Procedure Co nsent Form; Agreement on Procedure to be Done; Correct Patient Position ANESTHESIA Anesthesia Plans: Epidural Epidural Positioning: Sitting Datetime: 01/02/2023 17:30 Monitor Interventions for UA: [place] Adjusted Datetime: 01/02/2023 17:05 Effacement (%): 90 Datetime: 01/02/2023 17:00 Contraction Comments: unable to machine operator picker contractions in current position. RN at bedside monitoring Pain Assessment Comments: nitrous oxide used by patient through one contraction. Patient reports n o change in pain and does not wish to continue use. Datetime: 01/02/2023 16:53 Pain Presence: Intermittent Pain Type: Contraction Datetime: 01/02/2023 15:27 Membrane Status: Ruptured Membranes Rupture Method: Artificial Amniotic Fluid Color: Clear Amniotic Fluid Amount: Moderate Amniotic Fluid Odor: None Datetime: 01/02/2023 15:22 Cervical Ripening Agents: Howard Balloon Datetime: 01/02/2023 15:20 Strip Reviewed by: Dr. Bustamante Provider Notified (Name): Dr. Bustamante Datetime: 01/02/2023 14:15 Comments: single variable without reoccurence Datetime: 01/02/2023 13:27 PRE-INDUCTION CHECKLIST Orders on Chart: Yes H Record Available: Yes Indication Charted: Yes Adequate Pelvis Charted: Yes EFW Documented: Yes Gestational Age Documented: Yes Consent Signed and on Chart: Yes Provider with C/S Priv Aware: Yes Status of Cervix Documented: Yes Presentation Documented: Yes 30min of Monitoring Prior: Yes 2 Accels of 15X15 Present: Yes No Late Decels Present: Yes Less than 2 Variable Decels: Yes Pt Meets Criteria for Induction: Yes Datetime: 01/02/2023 12:05 Bedside Blood Glucose: 93 Datetime: 01/02/2023 11:17 Pain Location: Abdomen Pain Goal: 7 Pain Relief Measures: Comfort Measures Datetime: 01/02/2023 09:40 PATIENT CARE IV/Blood Work: IV Started; Labs Drawn with IV Start Datetime: 01/02/2023 09:09 Cervix, Consistency: Soft Cervix, Position: Midposition
[2023-01-04] MEDS ORDERED: FERROUS SULFATE 325 MG TABLET PO SCH (17:00)
== END 2023-01-04 11:00 | disposition home or self-care (01) | DRG 806 ==
LOC: WFO 08:44 → FBP 08:45 → WFO 09:47 → FBP 09:48
PROVIDERS: ADMIT Obstetrics & Gynecology Obstetrics; ATTEND Obstetrics & Gynecology Obstetrics
PROC: 0U7C7ZZ Dilation of Cervix, Via Natural or Artificial Opening (ICD-10-PCS; principal; 2023-01-02)
PROC: 10D17Z9 Manual Extraction of Products of Conception, Retained, Via Natural or Artificial Opening (ICD-10-PCS; 2023-01-02)
PROC: 3E033VJ Introduction of Other Hormone into Peripheral Vein, Percutaneous Approach (ICD-10-PCS; 2023-01-02)
PROC: 10907ZC Drainage of Amniotic Fluid, Therapeutic from Products of Conception, Via Natural or Artificial Opening (ICD-10-PCS; 2023-01-02)
PROC: 10E0XZZ Delivery of Products of Conception, External Approach (ICD-10-PCS; 2023-01-02)
PROC: 0HQ9XZZ Repair Perineum Skin, External Approach (ICD-10-PCS; 2023-01-02)
DX: O24.425 Gestational diabetes mellitus in childbirth, controlled by oral hypoglycemic drugs (principal); O72.2 Delayed and secondary postpartum hemorrhage; Z37.0 Single live birth; O70.0 First degree perineal laceration during delivery; O99.214 Obesity complicating childbirth; Z3A.00 Weeks of gestation of pregnancy not specified
CPT/HCPCS: 36415; 80053; 85025; 85610; 85730; 86850; 86900; 86901; 86920; A9270; J2210; J7120